=== PATIENT | male | born 1980 ===

== ENCOUNTER 2019-08-16 16:30 | Inpatient (IN) | payer OTHER ==
[~2019-08-16] VITALS: Ht 182.9 cm; Wt 96.0 kg
--- NOTE | 2019-08-16 16:00 | NUR ---
Patient here from [facility] by EMS . Alert and oriented x 3. Patient and spouse oriented to room. Initial and 5 page complete. Fluids infusing to left AC IV. Left side of face appers swollen as well as lump noted to left neck, patient complains of pain 4/10 to side of face.
[2019-08-16] MEDS ORDERED: IBU600 MG PO (16:42)
[2019-08-16] MEDS ORDERED: TYLENOL #21 TAB (16:42)
[2019-08-16] MEDS ORDERED: MELATONIN5 M1 SL (16:43)
[2019-08-16 16:58] VITALS: BP 114/58; PULSE 67; TEMP 98.6
--- NOTE | 2019-08-16 19:13 | NUR ---
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
[2019-08-16 20:00] VITALS: BP 119/71; PULSE 76; TEMP 97.3
[2019-08-16 23:53] VITALS: BP 112/70; PULSE 63; TEMP 98
[2019-08-17 03:56] VITALS: BP 122/64; PULSE 78; TEMP 97.8
--- NOTE | 2019-08-17 05:52 | NUR ---
NO CHANGE IN FACIAL EDEMA. NORCO FOR PAIN. PT NOW NPO. AFEBRILE.
[2019-08-17 07:07] LABS: BASO % 0.2 % (0.0-2.0); GRAN # 4.8 (1.4-6.5); GRAN % 74.5 % (42.2-75.2); HEMATOCRIT 45.4 % (42.0-52.0); HEMOGLOBIN 15.9 g/dl (13.5-18.0); LYMPH # 1.5 (1.2-3.4); LYMPH % 22.8 % (20.0-51.0); MEAN CELL VOLUME 84 fl (80.0-100.0); MEAN CORPUSCULAR HEMOGLOBIN 29 pg (27.0-31.0); MEAN CORPUSCULAR HGB CONC 35 g/dl (33.0-37.0); MEAN PLATELET VOLUME 11.1 fl (7.4-10.4); MONO # 0.1 (0.1-0.6); MONO % 2.2 % (1.7-9.3); PLATELET COUNT 224 K/mm3 (130-400); RED BLOOD COUNT 5.42 M/mm3 (4.20-5.60); REDCELL DISTRIBUTION WIDTH-CV 12.3 % (11.5-14.5)
[2019-08-17 07:16] LABS: CREATININE, serum 0.78 (0.66-1.25); POTASSIUM 4.4 mmol/L (3.4-5.0)
--- NOTE | 2019-08-17 07:39 | NUR ---
Vancomycin Initial Dosing Pharmacy Note Ordering provider: Lawrence Beltre MD Indication/duration: CELLULITIS Relevant comorbidities: NONE LABS: WBC PENDING, SCr 0.78, CrCl >100 Recommendation: ~13 mg/kg Loading dose: 1.5 grams Maintenance dose: 1.25 grams every 8 hours Trough goal: 10-15 ug/mL. trough 08/18/19 @ 0730
[2019-08-17 08:14] VITALS: BP 121/56; PULSE 73; TEMP 97.8
[2019-08-17 11:56] VITALS: BP 117/63; PULSE 72; TEMP 97.6
--- NOTE | 2019-08-17 12:36 | NUR ---
Plan: To return home with Spouse in [place]. Chad . Assess: Patient reports that he does not have any concerns at this time. Patient reports that he resides in and is in the [employer]. PCP is assigned by the PA on the [facility]. Patient indicated that he uses [facility] in for RX (Main). Patient indicated that his will transport. Denies any use of DME, or 02. No additional concerns. Action: IGOR educated on resources available to community. Nothing follows.
--- NOTE | 2019-08-17 13:00 | NUR ---
Patient is doing well at this time. ENT has seen him and said he can eat. Patient has been having some pain but no nausea. He has not wanted pain medications at this time. His is at bedside. No other changes at this time. Call light within reach.
[2019-08-17 16:19] VITALS: BP 136/72; PULSE 96; TEMP 97.6
--- NOTE | 2019-08-17 18:28 | NUR ---
Patient has been doing well today. Minimal complaints of pain. No complaints of nausea. He showered this afternoon. No other changes at this time. Call light within reach.
[2019-08-17 19:46] VITALS: BP 130/61; PULSE 90; TEMP 97.7
[2019-08-18 04:45] VITALS: BP 129/60; PULSE 79; TEMP 98
--- NOTE | 2019-08-18 05:22 | NUR ---
Patient has slept well throughout the night. Pain well tolerated with current pain regimen. Independent in the room. Site to left forehead noted to have a scab and left eyelid noted to be swollen. Antibiotics administered through IV to left AC. Tolerating PO fluids well. IV to INT. Will continue to monitor.
--- NOTE | 2019-08-18 08:00 | NUR ---
Patient in bed resting. Independent in room. Alert and oriented x 3. INT to right forarm. Facial swelling better today. Denies pain at this time. Denies further needs at this time.
[2019-08-18 08:34] VITALS: BP 135/49; PULSE 84; TEMP 97.4
--- NOTE | 2019-08-18 10:19 | NUR ---
Initial visit; Patient thanked Respiratory Therapy Instructor for looking in on him and offering God's blessings. Patient's family member present also.
[2019-08-18 11:48] VITALS: BP 132/63; PULSE 77; TEMP 98.3
[2019-08-18] MEDS ORDERED: NORCO 325 MG-51 TAB PO (14:01)
[2019-08-18] MEDS ORDERED: CLEOCIN HCL300 MG PO (14:03)
[2019-08-18] MEDS ORDERED: OMNICEF 300MG300 MG PO (14:03)
[2019-08-18] MEDS ORDERED: MEDROL 4MG DOSPA4 MG PO (14:05)
--- NOTE | 2019-08-18 15:27 | NUR ---
Discharge education provided to patient and spouse. Educated on when to call provider and all new medications. Patient is to follow up with ENT and primary in 1 wk. All questions answered. Denies further needs at this time. INT to right forarm, catheter tip intact. Patient ambulated out with surgical staff and family. Denies further needs at this time.
== END 2019-08-18 15:15 | disposition home or self-care (01) | DRG 603 ==
LOC: SURG 16:30
PROVIDERS: ADMIT Family Medicine
DX: L03.213 Periorbital cellulitis (principal); R22.1 Localized swelling, mass and lump, neck; Z88.0 Allergy status to penicillin; Z88.7 Allergy status to serum and vaccine; Z79.891 Long term (current) use of opiate analgesic
CPT/HCPCS: 99222-AI; 99232-AI; 99239; A4216; J0696; J2920; J3370; J7030; J7050